=== PATIENT | female | born 1980 | race African-American/Black ===

== ENCOUNTER 2017-02-19 13:29 | Emergency (ER) | payer MEDICAID | END 2017-02-19 14:14 | disposition left against medical advice (07) | LOC: D.ER 13:29 | DX: H92.02 Otalgia, left ear (principal) ==

== ENCOUNTER 2017-09-20 10:20 | Observation (INO) | payer MEDICAID ==
[~2017-09-20] VITALS: Ht 165.1 cm; Wt 75.6 kg
[2017-09-20 11:28] LABS: BASOPHILS 0.2 % (0-2); EOSINOPHILS 2.5 % (0-7); HEMATOCRIT 42.5 % (36.0-48.0); HEMOGLOBIN 13.9 g/dL (12-16); IMMATURE GRANULOCYTES 0.2 % (0-5); LYMPHOCYTES 35.1 % (15-50); MCH 28.5 pg (26.0-34.0); MCHC 32.7 g/dL (31.0-37.0); MCV 87.3 fL (80.0-100.0); MEAN PLATELET VOLUME 10.5 fL (7.4-10.4); MONOCYTES 8.3 % (2-11); NEUTROPHILS 53.7 % (40-80); PLATELET COUNT 248 10x3/uL (130-400); RBC 4.87 10x6/uL (4.00-5.40); RDW 15.9 % (11.5-14.5); WBC 5.6 10x3/uL (4.8-10.8)
[2017-09-20 11:34] LABS: APTT 22.6 SECONDS (22.8-39.4); INR 0.95 (0.85-1.17); PROTIME 12.3 SECONDS (11.6-15.0)
[2017-09-20 11:39] LABS: ALBUMIN 3.8 g/dL (3.4-5.0); ALKALINE PHOSPHATASE 78 U/L (46-116); ALT (SGPT) 13 U/L (10-68); BILIRUBIN - TOTAL 0.67 mg/dL (0.2-1.3); CALC OSMOLALITY 279 mosm/kg (275-300); CARBON DIOXIDE 27.4 mmol/L (21.0-32.0); CHLORIDE - SERUM 106 mmol/L (98-107); GLUCOSE 97 mg/dL (74-106); POTASSIUM - SERUM 4.1 mmol/L (3.5-5.1); PROTEIN - SERUM 7.4 g/dL (6.4-8.2); SODIUM 141 mmol/L (136-145); UREA NITROGEN 11 mg/dL (7-18); eGFR NON AFRICAN AMERICAN 65 mL/min (90-120)
[2017-09-20 11:50] LABS: CKMB 0.6 U/L (0.0-3.6); CREATINE KINASE 101 UL (21-215)
[2017-09-20 11:57] LABS: TROPONIN-I < 0.017 ng/mL (0.000-0.060)
[2017-09-20 12:23] LABS: UDS - AMPHET NEGATIVE QUAL (NEGATIVE); UDS - BARB NEGATIVE QUAL (NEGATIVE); UDS - BENZO NEGATIVE QUAL (NEGATIVE); UDS - COCAINE NEGATIVE QUAL (NEGATIVE); UDS - OPIATE POSITIVE QUAL (NEGATIVE); UDS - PCP NEGATIVE QUAL (NEGATIVE); UDS - THC POSITIVE QUAL (NEGATIVE)
[2017-09-20 12:56] LABS: APPEARANCE HAZY (CLEAR); COLOR DK YELLOW (YELLOW); GLUCOSE NEGATIVE (NEGATIVE); NITRITE NEGATIVE (NEGATIVE)
[2017-09-20 12:57] LABS: BILIRUBIN NEGATIVE (NEGATIVE); KETONE NEGATIVE (NEGATIVE); PROTEIN NEGATIVE (NEGATIVE); UROBILINOGEN NORMAL (NORMAL)
[2017-09-20 13:11] LABS: BACTERIA MODERATE /hpf (NONE SEEN); RED CELLS - URINE >50 /hpf (0-5); WHITE CELLS - URINE 0-5 /hpf (0-5)
--- NOTE | 2017-09-20 18:14 | NUR ---
PT ARRIVED TO FLOOR VIA WHEELCHAIR WITH BLANCA WILCOX. WILL ADMIT
[2017-09-20 18:18] LABS: CKMB 0.5 U/L (0.0-3.6); CREATINE KINASE 97 UL (21-215)
[2017-09-20 18:24] LABS: TROPONIN-I < 0.017 ng/mL (0.000-0.060)
[2017-09-20 20:23] VITALS: BP 131/78
--- NOTE | 2017-09-20 21:28 | NUR ---
RELIABILITY ENGINEER STATES PT SAYING SHE IS IN PAIN AND NEEDS MEDICINE. MIRIAN UP MORPHINE TO ADMINISTER AND WENT TO ROOM. PT NO WHERE TO BE FOUND AND GEAR ROOM KEEPER SHOWS SHE HAS GONE OUT OF THE BUILDING. WILL DISCUSS TELEMETRY LIMITATIONS AND THAT IF SHE REQUESTS PAIN MEDS, SHE MUST STAY ON THE FLOOR TO RECIEVE THEM AND NOT LEAVE THE FLOOR AFTERWARD. WILL MONITOR FOR HER RETURN.
--- NOTE | 2017-09-20 22:08 | NUR ---
PT RETURNED TO ROOM. SAID SHE HAD BEEN TO THE VENDING MACHINE. IV MORPHINE GIVEN FOR CHEST/BREAST PAIN 05/21. PT IS ALERT/ORIENTED AND INDEPENDENT WITH ADLS. CALL LIGHT IN REACH. CPOC.
[2017-09-21 01:19] LABS: CKMB 0.8 U/L (0.0-3.6); CREATINE KINASE 84 UL (21-215); TROPONIN-I < 0.017 ng/mL (0.000-0.060)
[2017-09-21 01:21] VITALS: BP 117/67
[2017-09-21 04:35] VITALS: BP 131/78; Ht 165.1 cm; Wt 75.6 kg
[2017-09-21 04:48] VITALS: BP 137/96
[2017-09-21 06:40] LABS: CKMB 0.7 U/L (0.0-3.6); CREATINE KINASE 79 UL (21-215)
[2017-09-21 06:44] LABS: TROPONIN-I < 0.017 ng/mL (0.000-0.060)
--- NOTE | 2017-09-21 07:01 | NUR ---
C/O CHEST PRESSURE/PAIN X 1 HOUR. ADMINISTERED NITRO TAB 0.4MG X 1 SUBLINGUALLY AND ALSO STARTED O2 @ 2L/NC. WILL MONITOR RESPONSE. REPORT TO ONCOMING NURSE.
--- NOTE | 2017-09-21 07:15 | NUR ---
RESTING QUIETLY EYES CLOSED NAD NOTED
--- NOTE | 2017-09-21 07:40 | NUR ---
ASSESSMENT DONE. DENIES NEEDS.
[2017-09-21 08:00] VITALS: BP 132/95
[2017-09-21 11:25] VITALS: BP 146/97
[2017-09-21] MEDS ORDERED: NORVASC5 MG PO (14:52)
[2017-09-21] MEDS ORDERED: NICODERM C1 PATCH .1 TRANSDERM (14:52)
[2017-09-21] MEDS ORDERED: ASPIRIN325 MG PO (14:52)
[2017-09-21 15:39] VITALS: BP 128/90
--- NOTE | 2017-09-21 16:06 | NUR ---
DC GIVEN TO PT
--- NOTE | 2017-09-21 16:41 | NUR ---
DC HOME PER TAXI
== END 2017-09-21 16:42 | disposition home or self-care (01) ==
LOC: D.ER 10:20 → D.M2 16:48 → OBSVTIME 16:48 → D.M2 09-21 16:42
PROVIDERS: Family Medicine; ADMIT Family Medicine
DX: I16.0 Hypertensive urgency (principal); R07.9 Chest pain, unspecified; F17.203 Nicotine dependence unspecified, with withdrawal; F12.90 Cannabis use, unspecified, uncomplicated

== ENCOUNTER 2019-01-19 10:48 | Emergency (ER) | payer MEDICAID ==
[~2019-01-19] VITALS: Ht 160 cm; Wt 76.4 kg
[~2019-01-19 10:48] MED LIST: ASPIRIN325 MG PO; NICODERM C1 PATCH .1 TRANSDERM; NORVASC5 MG PO
[2019-01-19 10:50] VITALS: Ht 160 cm; Wt 76.4 kg
[2019-01-19 11:25] LABS: BASOPHILS 0.1 % (0-2); EOSINOPHILS 0.4 % (0-7); HEMATOCRIT 39.4 % (36.0-48.0); HEMOGLOBIN 13.2 g/dL (12-16); IMMATURE GRANULOCYTES 0.2 % (0-5); LYMPHOCYTES 14.3 % (15-50); MCH 29.3 pg (26.0-34.0); MCHC 33.5 g/dL (31.0-37.0); MCV 87.4 fL (80.0-100.0); MEAN PLATELET VOLUME 10.3 fL (7.4-10.4); PLATELET COUNT 269 10x3/uL (130-400); RBC 4.51 10x6/uL (4.00-5.40); RDW 15.9 % (11.5-14.5)
[2019-01-19 11:32] LABS: HCG SERUM NEGATIVE (NEGATIVE)
[2019-01-19 11:36] LABS: ALBUMIN 3.8 g/dL (3.4-5.0); ANION GAP 13.6 mmol/L (8-16); BILIRUBIN - TOTAL 0.56 mg/dL (0.2-1.3); CARBON DIOXIDE 24.8 mmol/L (21.0-32.0); CREATININE - SERUM 1.2 mg/dL (0.6-1.3); POTASSIUM - SERUM 3.4 mmol/L (3.5-5.1)
[2019-01-19 12:45] LABS: APPEARANCE CLEAR (CLEAR); COLOR YELLOW (YELLOW); NITRITE NEGATIVE (NEGATIVE); PROTEIN TRACE mg/dL (NEGATIVE); SPECIFIC GRAVITY 1.015 (1.005-1.020)
[2019-01-19 12:46] LABS: BILIRUBIN NEGATIVE (NEGATIVE); GLUCOSE NEGATIVE (NEGATIVE); KETONE NEGATIVE (NEGATIVE); UROBILINOGEN NORMAL (NORMAL)
[2019-01-19 12:47] LABS: BACTERIA MODERATE /hpf (NONE SEEN); EPITHELIAL CELLS 0-5 /hpf (0-5); MUCUS >1+ /lpf (NONE SEEN); WHITE CELLS - URINE 0-5 /hpf (0-5)
[2019-01-19] MEDS ORDERED: ZOFRAN ODT4 MG/UDTAB PO (14:49)
[2019-01-19] MEDS ORDERED: FLAGYL500 MG PO (14:49)
[2019-01-19] MEDS ORDERED: BENTYL 20 MG TA20 MG PO (14:49)
[2019-01-19 15:02] VITALS: BP 159/111
[2019-01-19] MEDS ORDERED: LISINOPRIL20 MG PO (15:07)
== END 2019-01-19 15:02 | disposition home or self-care (01) ==
LOC: D.ER 10:48
PROVIDERS: Family Medicine
DX: A59.9 Trichomoniasis, unspecified (principal); N39.0 Urinary tract infection, site not specified; I10 Essential (primary) hypertension; F17.200 Nicotine dependence, unspecified, uncomplicated

== ENCOUNTER 2019-04-30 00:05 | Emergency (ER) | payer MEDICAID ==
[~2019-04-30] VITALS: Ht 160 cm; Wt 80.9 kg
[~2019-04-30 00:05] MED LIST changes: +BENTYL 20 MG TA20 MG PO; +FLAGYL500 MG PO; +LISINOPRIL20 MG PO; +ZOFRAN ODT4 MG/UDTAB PO
[2019-04-30 00:08] VITALS: Ht 160 cm; Wt 80.9 kg
[2019-04-30 00:28] LABS: HEMATOCRIT 40.6 % (36.0-48.0); HEMOGLOBIN 13.4 g/dL (12-16); LYMPHOCYTES 19.2 % (15-50); MCH 28.7 pg (26.0-34.0); MCV 86.9 fL (80.0-100.0); MEAN PLATELET VOLUME 10.2 fL (7.4-10.4); NEUTROPHILS 77.3 % (40-80); PLATELET COUNT 251 10x3/uL (130-400); RBC 4.67 10x6/uL (4.00-5.40); RDW 16.3 % (11.5-14.5); WBC 8.2 10x3/uL (4.8-10.8)
[2019-04-30 00:44] LABS: ALBUMIN 3.7 g/dL (3.4-5.0); ALKALINE PHOSPHATASE 88 U/L (46-116); ALT (SGPT) 10 U/L (10-68); AMYLASE - SERUM 51 U/L (25-115); BILIRUBIN - TOTAL 0.56 mg/dL (0.2-1.3); CARBON DIOXIDE 23.2 mmol/L (21.0-32.0); CHLORIDE - SERUM 102 mmol/L (98-107); LIPASE 87 U/L (73-393); PROTEIN - SERUM 7.5 g/dL (6.4-8.2); SODIUM 138 mmol/L (136-145); UREA NITROGEN 10 mg/dL (7-18); eGFR NON AFRICAN AMERICAN 65 mL/min (90-120)
[2019-04-30 00:45] LABS: CALC OSMOLALITY 277 mosm/kg (275-300); GLUCOSE 146 mg/dL (74-106)
[2019-04-30 00:46] LABS: POTASSIUM - SERUM 2.8 mmol/L (3.5-5.1); TROPONIN-I < 0.017 ng/mL (0.000-0.060)
[2019-04-30 01:01] LABS: APPEARANCE CLEAR (CLEAR); BILIRUBIN NEGATIVE (NEGATIVE); COLOR YELLOW (YELLOW); GLUCOSE NEGATIVE (NEGATIVE); KETONE MODERATE mg/dL (NEGATIVE); NITRITE NEGATIVE (NEGATIVE); PROTEIN NEGATIVE (NEGATIVE); UROBILINOGEN NORMAL (NORMAL)
[2019-04-30 01:56] LABS: HCG URINE NEGATIVE (NEGATIVE)
[2019-04-30] MEDS ORDERED: FLAGYL500 MG PO (04:09)
[2019-04-30] MEDS ORDERED: LEVAQUIN750 MG PO (04:09)
[2019-04-30] MEDS ORDERED: FLORASTOR250 MG PO (04:09)
[2019-04-30 07:19] VITALS: BP 134/82
== END 2019-04-30 04:30 | disposition home or self-care (01) ==
LOC: D.ER 00:05
PROVIDERS: Family Medicine
DX: K52.9 Noninfective gastroenteritis and colitis, unspecified (principal)

== ENCOUNTER 2019-05-26 12:04 | Emergency (ER) | payer MEDICAID ==
[~2019-05-26] VITALS: Ht 160 cm; Wt 68.2 kg
[~2019-05-26 12:04] MED LIST changes: +FLORASTOR250 MG PO; +LEVAQUIN750 MG PO
[2019-05-26 12:22] VITALS: Ht 160 cm; Wt 68.2 kg
[2019-05-26 12:44] LABS: BASOPHILS 0 % (0-2); EOSINOPHILS 0 % (0-7); HEMATOCRIT 42.7 % (36.0-48.0); HEMOGLOBIN 14.6 g/dL (12-16); IMMATURE GRANULOCYTES 0.4 % (0-5); LYMPHOCYTES 3.7 % (15-50); MCH 28.9 pg (26.0-34.0); MCHC 34.2 g/dL (31.0-37.0); MCV 84.6 fL (80.0-100.0); MEAN PLATELET VOLUME 10.1 fL (7.4-10.4); MONOCYTES 4.6 % (2-11); NEUTROPHILS 91.3 % (40-80); PLATELET COUNT 247 10x3/uL (130-400); RBC 5.05 10x6/uL (4.00-5.40); RDW 16.2 % (11.5-14.5); WBC 16.9 10x3/uL (4.8-10.8)
[2019-05-26 13:07] LABS: ALKALINE PHOSPHATASE 90 U/L (46-116); ALT (SGPT) 14 U/L (10-68); BILIRUBIN - TOTAL 0.76 mg/dL (0.2-1.3); CALC OSMOLALITY 280 mosm/kg (275-300); CARBON DIOXIDE 26.2 mmol/L (21.0-32.0); CHLORIDE - SERUM 101 mmol/L (98-107); GLUCOSE 146 mg/dL (74-106); POTASSIUM - SERUM 3.7 mmol/L (3.5-5.1); PROTEIN - SERUM 8.2 g/dL (6.4-8.2); SODIUM 140 mmol/L (136-145); UREA NITROGEN 9 mg/dL (7-18); eGFR NON AFRICAN AMERICAN 65 mL/min (90-120)
[2019-05-26 13:11] LABS: AMYLASE - SERUM 50 U/L (25-115); LIPASE 66 U/L (73-393); TROPONIN-I < 0.017 ng/mL (0.000-0.060)
[2019-05-26] MEDS ORDERED: PHENERGAN25 MG RC (14:18)
[2019-05-26] MEDS ORDERED: LOMOTIL 2.5-0.1 EAC1 PO (14:18)
[2019-05-26 14:29] LABS: APPEARANCE CLEAR (CLEAR); BILIRUBIN NEGATIVE (NEGATIVE); COLOR YELLOW (YELLOW); GLUCOSE NEGATIVE (NEGATIVE); KETONE NEGATIVE (NEGATIVE); NITRITE NEGATIVE (NEGATIVE); PROTEIN 1+ mg/dL (NEGATIVE); UROBILINOGEN NORMAL (NORMAL)
[2019-05-26 14:30] LABS: WHITE CELLS - URINE 0-5 /hpf (0-5)
[2019-05-26 14:31] LABS: BACTERIA FEW /hpf (NONE SEEN); MUCUS >1+ /lpf (NONE SEEN)
[2019-05-26 15:23] VITALS: BP 131/77
== END 2019-05-26 15:27 | disposition home or self-care (01) ==
LOC: D.ER 12:04
PROVIDERS: Emergency Medicine
DX: R11.10 Vomiting, unspecified (principal); R19.7 Diarrhea, unspecified; R10.9 Unspecified abdominal pain; F17.210 Nicotine dependence, cigarettes, uncomplicated

== ENCOUNTER 2020-03-14 00:17 | Emergency (ER) | payer SELFPAY ==
[~2020-03-14] VITALS: Ht 160 cm; Wt 65.9 kg
[~2020-03-14 00:17] MED LIST changes: +LOMOTIL 2.5-0.1 EAC1 PO; +PHENERGAN25 MG RC
[2020-03-14 00:33] VITALS: Ht 160 cm; Wt 65.9 kg
[2020-03-14 01:03] LABS: BASOPHILS 0.4 % (0-2); EOSINOPHILS 2.6 % (0-7); HEMATOCRIT 40.5 % (36.0-48.0); HEMOGLOBIN 12.9 g/dL (12-16); IMMATURE GRANULOCYTES 0.2 % (0-5); LYMPHOCYTES 38.8 % (15-50); MCH 29.5 pg (26.0-34.0); MCHC 31.9 g/dL (31.0-37.0); MCV 92.5 fL (80.0-100.0); MEAN PLATELET VOLUME 10.2 fL (7.4-10.4); MONOCYTES 10.4 % (2-11); NEUTROPHILS 47.6 % (40-80); PLATELET COUNT 287 10x3/uL (130-400); RBC 4.38 10x6/uL (4.00-5.40); RDW 14.6 % (11.5-14.5); WBC 5.5 10x3/uL (4.8-10.8)
[2020-03-14 01:14] LABS: CALC OSMOLALITY 278 mosm/kg (275-300); CALCIUM 8.6 mg/dL (8.5-10.1); CARBON DIOXIDE 26.6 mmol/L (21.0-32.0); CHLORIDE - SERUM 104 mmol/L (98-107); CREATININE - SERUM 1.1 mg/dL (0.6-1.3); GLUCOSE 101 mg/dL (74-106); POTASSIUM - SERUM 3.2 mmol/L (3.5-5.1); SODIUM 139 mmol/L (136-145); UREA NITROGEN 14 mg/dL (7-18); eGFR NON AFRICAN AMERICAN 58 mL/min (90-120)
[2020-03-14 01:19] LABS: APTT 28.4 SECONDS (22.8-39.4); INR 0.99 (0.85-1.17); PROTIME 13.1 SECONDS (11.6-15.0)
[2020-03-14 01:20] LABS: D-DIMER-QUANTITATIVE 0.34 ug/mLFEU (0.20-0.54)
[2020-03-14 01:31] LABS: ALBUMIN 3.2 g/dL (3.4-5.0); ALKALINE PHOSPHATASE 101 U/L (30-120); ALT (SGPT) 14 U/L (10-68); BILIRUBIN - TOTAL 0.25 mg/dL (0.2-1.3); CKMB 1.1 U/L (0.0-3.6); CREATINE KINASE 69 UL (21-215); MAGNESIUM - SERUM 2.1 mg/dL (1.8-2.4); PROTEIN - SERUM 6.6 g/dL (6.4-8.2); TROPONIN-I < 0.017 ng/mL (0.000-0.060)
[2020-03-14] MEDS ORDERED: LISINOPRIL40 MG PO ×2 (01:38→04:28)
[2020-03-14 04:02] LABS: CKMB 0.8 U/L (0.0-3.6); CREATINE KINASE 68 UL (21-215)
[2020-03-14 04:04] LABS: TROPONIN-I < 0.017 ng/mL (0.000-0.060)
[2020-03-14 04:37] VITALS: BP 150/95
== END 2020-03-14 04:35 | disposition home or self-care (01) ==
LOC: D.ER 00:17
PROVIDERS: Family Medicine
DX: R07.9 Chest pain, unspecified (principal); Z91.14 Patient's other noncompliance with medication regimen; I10 Essential (primary) hypertension; Z72.0 Tobacco use; R06.02 Shortness of breath

== ENCOUNTER 2020-04-20 05:51 | Emergency (ER) | payer MEDICAID ==
[~2020-04-20] VITALS: Ht 160 cm; Wt 72.6 kg
[~2020-04-20 05:51] MED LIST changes: +LISINOPRIL40 MG PO
[2020-04-20 05:57] VITALS: Ht 160 cm; Wt 72.6 kg
[2020-04-20 06:10] LABS: BASOPHILS 0.2 % (0-2); EOSINOPHILS 3.1 % (0-7); HEMATOCRIT 42.6 % (36.0-48.0); HEMOGLOBIN 14.1 g/dL (12-16); IMMATURE GRANULOCYTES 0.2 % (0-5); LYMPHOCYTES 31.9 % (15-50); MCH 29.7 pg (26.0-34.0); MCHC 33.1 g/dL (31.0-37.0); MCV 89.9 fL (80.0-100.0); MEAN PLATELET VOLUME 9.8 fL (7.4-10.4); MONOCYTES 11.6 % (2-11); PLATELET COUNT 256 10x3/uL (130-400); RBC 4.74 10x6/uL (4.00-5.40); WBC 5.2 10x3/uL (4.8-10.8)
[2020-04-20 06:20] LABS: CALC OSMOLALITY 275 mosm/kg (275-300); CALCIUM 8.9 mg/dL (8.5-10.1); CARBON DIOXIDE 26.1 mmol/L (21.0-32.0); CHLORIDE - SERUM 103 mmol/L (98-107); CREATININE - SERUM 1.1 mg/dL (0.6-1.3); GLUCOSE 97 mg/dL (74-106); SODIUM 138 mmol/L (136-145); UREA NITROGEN 12 mg/dL (7-18); eGFR NON AFRICAN AMERICAN 58 mL/min (90-120)
[2020-04-20 06:32] LABS: ALBUMIN 3.3 g/dL (3.4-5.0); ALKALINE PHOSPHATASE 129 U/L (30-120); ALT (SGPT) 21 U/L (10-68); BILIRUBIN - TOTAL 0.42 mg/dL (0.2-1.3); C-REACTIVE PROTEIN 0.8 mg/dL (0.0-0.9); PRO BNP 102 pg/mL (0-125); PROTEIN - SERUM 6.9 g/dL (6.4-8.2); TROPONIN-I < 0.017 ng/mL (0.000-0.060)
[2020-04-20] MEDS ORDERED: AZITHROMYCIN500 MG PO (06:40)
[2020-04-20] MEDS ORDERED: AMOXICILLIN500 M1 PO (06:40)
[2020-04-20 07:23] VITALS: BP 154/86
== END 2020-04-20 07:23 | disposition home or self-care (01) ==
LOC: D.ER 05:51
PROVIDERS: Family Medicine
DX: I10 Essential (primary) hypertension (principal); R05 Cough; J18.9 Pneumonia, unspecified organism; Z72.0 Tobacco use

== ENCOUNTER 2020-06-15 08:58 | Emergency (ER) | payer MEDICAID ==
[~2020-06-15] VITALS: Ht 160 cm; Wt 72.7 kg
[~2020-06-15 08:58] MED LIST changes: +AMOXICILLIN500 M1 PO; +AZITHROMYCIN500 MG PO
[2020-06-15 09:03] VITALS: Ht 160 cm; Wt 72.7 kg
[2020-06-15] MEDS ORDERED: NORVASC5 MG PO (09:20)
[2020-06-15] MEDS ORDERED: MEDROL DOSE PACK4 MG PO (09:20)
[2020-06-15 13:06] VITALS: BP 137/83
== END 2020-06-15 13:07 | disposition home or self-care (01) ==
LOC: D.ER 08:58
DX: L50.9 Urticaria, unspecified (principal); I10 Essential (primary) hypertension

== ENCOUNTER 2020-06-16 16:27 | Inpatient (IN) | payer MEDICAID ==
[~2020-06-16] VITALS: Ht 160 cm; Wt 72.7 kg
[~2020-06-16 16:27] MED LIST changes: +MEDROL DOSE PACK4 MG PO
[2020-06-16 16:54] LABS: BASOPHILS 0.1 % (0-2); EOSINOPHILS 0.1 % (0-7); HEMATOCRIT 46.1 % (36.0-48.0); IMMATURE GRANULOCYTES 0.2 % (0-5); MCH 27.7 pg (26.0-34.0); MCHC 32.5 g/dL (31.0-37.0); MCV 85.1 fL (80.0-100.0); MEAN PLATELET VOLUME 10.3 fL (7.4-10.4); MONOCYTES 3.5 % (2-11); NEUTROPHILS 90.1 % (40-80); RBC 5.42 10x6/uL (4.00-5.40); WBC 12.6 10x3/uL (4.8-10.8)
[2020-06-16 16:56] LABS: PLATELET COUNT 340 10x3/uL (130-400)
[2020-06-16 17:06] LABS: ANION GAP 15.7 mmol/L (8-16); CALCIUM 9.8 mg/dL (8.5-10.1); CREATININE - SERUM 1.2 mg/dL (0.6-1.3)
[2020-06-16 17:12] LABS: ALBUMIN 3.8 g/dL (3.4-5.0); BILIRUBIN - TOTAL 0.54 mg/dL (0.2-1.3); PROTEIN - SERUM 7.9 g/dL (6.4-8.2)
[2020-06-16 17:18] LABS: POTASSIUM - SERUM 4.7 mmol/L (3.5-5.1)
--- NOTE | 2020-06-16 18:22 | NUR ---
PT ARIVED VIA WHEELCHAIR TO ROOM. ALERT AND ORIENTED X4, UP WITHOUT ASSISTANCE. CUTTER GRIND TOOL TECHNICIAN ORDERED SUPPER TRAY. PROVIDED XTRA PILLOW. NO COMPLAINTS OR CONCERNS AT THIS TIME. CL INR EACH, SRX2.
[2020-06-16 20:44] VITALS: BP 152/93
--- NOTE | 2020-06-16 23:10 | NUR ---
PIV TO LEFT HAND D/C CATHETER TIP INTACT. NEW PIV RESITED TO RIGHT FA X2 ATTEMPTS. PT TOLERATED WELL. COMPLAINED OF GENERALIZED ITCHING, AND THAT HER THROAT HURTS. DENIES DIFFICULTY BREATHING. CALL LIGHT IN REACH. WILL CPOC.
[2020-06-17 00:24] VITALS: BP 173/87
[2020-06-17 02:52] VITALS: Ht 160 cm; Wt 72.7 kg
[2020-06-17 04:45] VITALS: BP 155/99
[2020-06-17 06:10] LABS: BASOPHILS 0 % (0-2); EOSINOPHILS 0 % (0-7); HEMATOCRIT 38.5 % (36.0-48.0); IMMATURE GRANULOCYTES 0.2 % (0-5); LYMPHOCYTES 6.8 % (15-50); MCH 27.2 pg (26.0-34.0); MCHC 31.2 g/dL (31.0-37.0); MEAN PLATELET VOLUME 10.6 fL (7.4-10.4); MONOCYTES 0.7 % (2-11); NEUTROPHILS 92.3 % (40-80); PLATELET COUNT 319 10x3/uL (130-400); RBC 4.41 10x6/uL (4.00-5.40); RDW 14.1 % (11.5-14.5); WBC 10.8 10x3/uL (4.8-10.8)
[2020-06-17 06:20] LABS: MCV 87.3 fL (80.0-100.0)
[2020-06-17 06:33] LABS: ALBUMIN 3.1 g/dL (3.4-5.0); ANION GAP 15.4 mmol/L (8-16); BILIRUBIN - TOTAL 0.26 mg/dL (0.2-1.3); CALCIUM 9.1 mg/dL (8.5-10.1); POTASSIUM - SERUM 4.4 mmol/L (3.5-5.1); PROTEIN - SERUM 6.4 g/dL (6.4-8.2)
[2020-06-17 07:00] VITALS: BP 154/80
--- NOTE | 2020-06-17 07:20 | NUR ---
RECIEVE REPORT. RESTING IN BED. DENIES ANY NEEDS. NO SIGNS OF DISTRESS. CONTINUE PLAN OF CARE AND SAFETY PRECAUTIONS.
[2020-06-17 15:00] VITALS: BP 158/97
--- NOTE | 2020-06-17 19:57 | NUR ---
C/O ITCHING AND HIVES. ASSSED AND UNABLE TO CLEARLY SEE HIVES. BENADRYL GIVEN PER REQUEST. SCRATCHING AREAS WITH LONG FINGER NAILS. GAVE HER A WASH CLOSTH AND ASKED HER TO USE THAT OVER HER NAILS TO PREVENT OPEN AREAS WHERE SHE WAD SCRATCING. VOICED UNDERSTANDING.
[2020-06-18 00:53] VITALS: BP 165/102
--- NOTE | 2020-06-18 03:04 | NUR ---
B/P ELEVATED TO 177/118. NOTIFIED APN. ARGUELLES WITH N.O. FOR APRESOLINE 10MG IV FOR SBP FGREATER THAN 170. GIVEN ORDERED. AUTO B/P ON TO RECHECK IN 30MIN.
[2020-06-18 04:30] VITALS: BP 168/101
[2020-06-18 06:02] LABS: BASOPHILS 0 % (0-2); EOSINOPHILS 0 % (0-7); HEMATOCRIT 39.6 % (36.0-48.0); HEMOGLOBIN 12.7 g/dL (12-16); IMMATURE GRANULOCYTES 0.6 % (0-5); LYMPHOCYTES 7.1 % (15-50); MCH 27.3 pg (26.0-34.0); MCHC 32.1 g/dL (31.0-37.0); MEAN PLATELET VOLUME 10.3 fL (7.4-10.4); MONOCYTES 4.9 % (2-11); NEUTROPHILS 87.4 % (40-80); PLATELET COUNT 351 10x3/uL (130-400); RBC 4.66 10x6/uL (4.00-5.40)
[2020-06-18 06:18] LABS: ALBUMIN 3.2 g/dL (3.4-5.0); BILIRUBIN - TOTAL 0.2 mg/dL (0.2-1.3); CALCIUM 9.1 mg/dL (8.5-10.1); CARBON DIOXIDE 26.1 mmol/L (21.0-32.0); CREATININE - SERUM 1.2 mg/dL (0.6-1.3); PROTEIN - SERUM 6.5 g/dL (6.4-8.2)
[2020-06-18 06:19] LABS: ANION GAP 11.6 mmol/L (8-16); POTASSIUM - SERUM 3.7 mmol/L (3.5-5.1)
[2020-06-18 06:31] LABS: WBC 18.9 10x3/uL (4.8-10.8)
--- NOTE | 2020-06-18 07:55 | NUR ---
PT RESTING, RR EVEN AND UNLABORED ON RA. NO DISTRESS NOTED. CALL LIGHT WITHIN REACH. BED IN LOWEST POSITION. WILL CONTINUE TO MONITOR.
[2020-06-18 09:46] VITALS: BP 154/100
--- NOTE | 2020-06-18 11:14 | NUR ---
D/C INSTRUCTIONS REVIEWED WITH PT AND FAMILY MEMBER. IV D/C WITH CATHETER TIP INTACT. PT LEFT VIA WHEELCHAIR WITH ALL BELONGINGS TO PERSONAL VEHICLE.
== END 2020-06-18 11:15 | disposition home or self-care (01) | DRG 916 ==
LOC: D.ER 16:27 → D.M2 17:10 → OBSVTIME 17:10 → D.M2 06-17 21:50
PROVIDERS: Family Medicine; ADMIT Emergency Medicine; ATTEND Emergency Medicine
DX: T78.3XXA Angioneurotic edema, initial encounter (principal); F31.30 Bipolar disorder, current episode depressed, mild or moderate severity, unspecified; I10 Essential (primary) hypertension; F12.90 Cannabis use, unspecified, uncomplicated; K21.9 Gastro-esophageal reflux disease without esophagitis; Z87.891 Personal history of nicotine dependence

== ENCOUNTER 2021-02-02 05:13 | Emergency (ER) | payer OTHER ==
[~2021-02-02] VITALS: Ht 160 cm; Wt 61.4 kg
[~2021-02-02 05:13] MED LIST changes: +ALBUTEROL SULF8.5 GM INH; +LEVSIN/ANASP0.125 MG PO; +OMNICEF300 MG PO; +ZPAK PO
[2021-02-02 05:16] VITALS: Ht 160 cm; Wt 61.4 kg
[2021-02-02 05:41] LABS: BASOPHILS 0.5 % (0-2); EOSINOPHILS 4.5 % (0-7); HEMATOCRIT 43.5 % (36.0-48.0); HEMOGLOBIN 13.5 g/dL (12-16); IMMATURE GRANULOCYTES 0.2 % (0-5); LYMPHOCYTE ABS# 0.85 10x3/uL (1.18-3.74); LYMPHOCYTES 20.3 % (15-50); MCH 22.8 pg (26.0-34.0); MCV 73.5 fL (80.0-100.0); MEAN PLATELET VOLUME 9.8 fL (7.4-10.4); MONOCYTES 16.9 % (2-11); NEUTROPHIL ABS# 2.41 10x3/uL (1.56-6.13); NEUTROPHILS 57.6 % (40-80); PLATELET COUNT 299 10x3/uL (130-400); RBC 5.92 10x6/uL (4.00-5.40); RDW 17.3 % (11.5-14.5); WBC 4.2 10x3/uL (4.8-10.8)
[2021-02-02 05:52] LABS: CALC OSMOLALITY 277 mosm/kg (275-300); CALCIUM 9.3 mg/dL (8.5-10.1); CARBON DIOXIDE 28.2 mmol/L (21.0-32.0); CHLORIDE - SERUM 103 mmol/L (98-107); GLUCOSE 93 mg/dL (74-106); POTASSIUM - SERUM 4.2 mmol/L (3.5-5.1); SODIUM 140 mmol/L (136-145); UREA NITROGEN 11 mg/dL (7-18); eGFR NON AFRICAN AMERICAN 64 mL/min (90-120)
[2021-02-02 05:54] LABS: APTT 26.6 SECONDS (22.8-39.4); INR 1.1 (0.85-1.17); PROTIME 13.2 SECONDS (11.6-15.0)
[2021-02-02 06:07] LABS: ALBUMIN 3.7 g/dL (3.4-5.0); ALKALINE PHOSPHATASE 98 U/L (30-120); ALT (SGPT) 18 U/L (10-68); BILIRUBIN - TOTAL 0.58 mg/dL (0.2-1.3); CKMB 1.5 U/L (0.0-3.6); CREATINE KINASE 79 UL (21-215); MAGNESIUM - SERUM 2.1 mg/dL (1.8-2.4); PROTEIN - SERUM 7.7 g/dL (6.4-8.2)
[2021-02-02 06:08] LABS: TROPONIN-I < 0.017 ng/mL (0.000-0.060)
[2021-02-02] MEDS ORDERED: LEVAQUIN750 MG PO (06:23)
[2021-02-02] MEDS ORDERED: HYDROCODON-ACE1 EAC7 PO (06:25)
[2021-02-02 07:17] VITALS: BP 134/88
== END 2021-02-02 08:06 | disposition home or self-care (01) ==
LOC: D.ER 05:13
PROVIDERS: Emergency Medicine
DX: J18.9 Pneumonia, unspecified organism (principal); R07.9 Chest pain, unspecified; I10 Essential (primary) hypertension; Z72.0 Tobacco use

== ENCOUNTER 2021-03-10 09:03 | Inpatient (IN) | payer OTHER ==
[~2021-03-10] VITALS: Ht 160 cm; Wt 68.6 kg
[~2021-03-10 09:03] MED LIST changes: +HYDROCODON-ACE1 EAC7 PO
[2021-03-10 09:53] LABS: BASOPHILS 0.4 % (0-2); EOSINOPHILS 1.4 % (0-7); HEMATOCRIT 44.8 % (36.0-48.0); LYMPHOCYTES 12.8 % (15-50); MCH 22.9 pg (26.0-34.0); MCHC 31.2 g/dL (31.0-37.0); MCV 73.4 fL (80.0-100.0); MEAN PLATELET VOLUME 8.4 fL (7.4-10.4); MONOCYTES 10.5 % (2-11); NEUTROPHILS 74.9 % (40-80); PLATELET COUNT 284 10x3/uL (130-400); RDW 21.5 % (11.5-14.5); WBC 5.4 10x3/uL (4.8-10.8)
[2021-03-10 09:57] LABS: CALC OSMOLALITY 277 mosm/kg (275-300); CALCIUM 9.2 mg/dL (8.5-10.1); CARBON DIOXIDE 30.2 mmol/L (21.0-32.0); CHLORIDE - SERUM 100 mmol/L (98-107); GLUCOSE 134 mg/dL (74-106); POTASSIUM - SERUM 4.4 mmol/L (3.5-5.1); SODIUM 138 mmol/L (136-145); UREA NITROGEN 13 mg/dL (7-18); eGFR NON AFRICAN AMERICAN 64 mL/min (90-120)
[2021-03-10 09:58] LABS: APTT 27.9 SECONDS (22.8-39.4); INR 1.08 (0.85-1.17)
[2021-03-10 10:14] LABS: ALBUMIN 3.8 g/dL (3.4-5.0); ALKALINE PHOSPHATASE 99 U/L (30-120); ALT (SGPT) 18 U/L (10-68); BILIRUBIN - TOTAL 0.74 mg/dL (0.2-1.3); CKMB 1.6 U/L (0.0-3.6); CREATINE KINASE 91 UL (21-215); PROTEIN - SERUM 8.2 g/dL (6.4-8.2)
[2021-03-10 10:15] LABS: TROPONIN-I < 0.017 ng/mL (0.000-0.060)
[2021-03-10 11:56] LABS: FERRITIN 32 ng/mL (3-244); LDH 190 U/L (81-234)
[2021-03-10 12:36] LABS: ERYTHROCYTE SEDIMENTATION RATE 4 mm/hr (0-20)
[2021-03-10 13:33] VITALS: BP 157/111
[2021-03-10 16:20] VITALS: BP 136/97
--- NOTE | 2021-03-10 16:37 | NUR ---
MERREM INFUSION COMPLETE
[2021-03-10 16:42] VITALS: BP 148/98
--- NOTE | 2021-03-10 18:09 | NUR ---
PATIENT ARRIVED TO UNIT AT THIS TIME VIA BED. ALERT/ORIENTED, AMBULATED FROM ER BED TO BED IN ROOM 2125. PATIENT ADMITTED TO ROOM 2126 AT THIS TIME. CALL LIGHT WITHIN REACH. NO DISTRESS.
--- NOTE | 2021-03-10 18:21 | NUR ---
QUICKSTART COMPLETE, MED REQ AND PHARMACY UPDATED. NO DISTRESS.
[2021-03-10 20:03] VITALS: BP 127/81
[2021-03-10 20:31] VITALS: BP 127/81; Ht 160 cm; Wt 68.6 kg
[2021-03-10 23:30] VITALS: BP 116/63
[2021-03-11 04:24] VITALS: BP 142/93
[2021-03-11 06:58] LABS: BASOPHILS 0.2 % (0-2); EOSINOPHILS 0 % (0-7); HEMATOCRIT 36.4 % (36.0-48.0); HEMOGLOBIN 11.3 g/dL (12-16); LYMPHOCYTES 4.6 % (15-50); MCH 23.1 pg (26.0-34.0); MCHC 31.1 g/dL (31.0-37.0); MCV 74.2 fL (80.0-100.0); MEAN PLATELET VOLUME 8.8 fL (7.4-10.4); MONOCYTES 1.7 % (2-11); NEUTROPHILS 93.5 % (40-80); PLATELET COUNT 250 10x3/uL (130-400); RBC 4.91 10x6/uL (4.00-5.40); RDW 21.4 % (11.5-14.5)
[2021-03-11 07:21] LABS: WBC 11.4 10x3/uL (4.8-10.8)
[2021-03-11 07:30] VITALS: BP 125/74
[2021-03-11 07:42] LABS: ALBUMIN 3.1 g/dL (3.4-5.0); BILIRUBIN - TOTAL 0.33 mg/dL (0.2-1.3); CALCIUM 8.7 mg/dL (8.5-10.1); CARBON DIOXIDE 24.8 mmol/L (21.0-32.0); CREATININE - SERUM 0.9 mg/dL (0.6-1.3); MAGNESIUM - SERUM 2.2 mg/dL (1.8-2.4); PHOSPHOROUS 3.3 mg/dL (2.5-4.9); POTASSIUM - SERUM 4.8 mmol/L (3.5-5.1); PROTEIN - SERUM 6.7 g/dL (6.4-8.2)
[2021-03-11 11:30] VITALS: BP 134/84
--- NOTE | 2021-03-11 11:43 | NUR ---
IVPB VANCOMYCIN HUNG AT THIS TIME. PT DENIES ANY NEEDS AT THIS TIME, CALL LIGHT IN REACH, FAMILY AT BEDSIDE.
--- NOTE | 2021-03-11 14:00 | NUR ---
4MG OF MORPHINE GIVEN FOR PAIN LEVEL OF 8/10. SPUTUM CULTURE COLLECTED AND TAKEN TO LAB. PT DENIES ANY OTHER NEEDS AT THIS TIME. CALL LIGHT IN REACH.
[2021-03-11 16:00] VITALS: BP 121/79
[2021-03-11 20:16] VITALS: BP 137/92
--- NOTE | 2021-03-11 22:00 | NUR ---
REPORT RECEIVED. PT A&O, UP IN BED WITH FINANCE AT BEDSIDE. NO S/S OF DISTRESS OBSERVED. RR EVEN & UNLABORED ON RA. R FA IV INFUSING NS @ 50CC/HR. ORDER RECEIVED FOR NICOTINE PATCH. BED LOCKED AND LOWERED, CL IN REACH. ASSESSMENT COMPLETE. WILL CONT POC.
[2021-03-12 00:20] VITALS: BP 144/82
[2021-03-12 05:21] VITALS: BP 162/105
[2021-03-12 05:45] LABS: BASOPHILS 0.1 % (0-2); EOSINOPHILS 0 % (0-7); HEMATOCRIT 35.5 % (36.0-48.0); HEMOGLOBIN 10.8 g/dL (12-16); LYMPHOCYTES 3.9 % (15-50); MCH 22.5 pg (26.0-34.0); MCHC 30.5 g/dL (31.0-37.0); MCV 73.8 fL (80.0-100.0); MEAN PLATELET VOLUME 8.2 fL (7.4-10.4); MONOCYTES 3.5 % (2-11); NEUTROPHILS 92.5 % (40-80); PLATELET COUNT 272 10x3/uL (130-400); RBC 4.81 10x6/uL (4.00-5.40); RDW 21.6 % (11.5-14.5)
[2021-03-12 05:52] LABS: WBC 14.8 10x3/uL (4.8-10.8)
[2021-03-12 05:59] LABS: ALBUMIN 2.9 g/dL (3.4-5.0); ANION GAP 9.6 mmol/L (8-16); BILIRUBIN - TOTAL 0.15 mg/dL (0.2-1.3); CALCIUM 8.7 mg/dL (8.5-10.1); CARBON DIOXIDE 29.2 mmol/L (21.0-32.0); CREATININE - SERUM 0.9 mg/dL (0.6-1.3); MAGNESIUM - SERUM 2.1 mg/dL (1.8-2.4); POTASSIUM - SERUM 4.8 mmol/L (3.5-5.1); PROTEIN - SERUM 6.4 g/dL (6.4-8.2)
--- NOTE | 2021-03-12 05:59 | NUR ---
RECHECKED PTS BP, 152/101.
[2021-03-12 08:00] VITALS: BP 150/95
--- NOTE | 2021-03-12 08:00 | NUR ---
PT RECEIVED AWAKE AND ALERT IN BED. ASKING FOR PAIN AND NAUSEA MEDS. DOSED PER ORDER. IV TO RIGHT FOREARM INFUSING. STATES NO SLEEP LAST NIGHT.
[2021-03-12 11:45] VITALS: BP 144/94
[2021-03-12 16:00] VITALS: BP 150/89
[2021-03-12 20:00] VITALS: BP 144/102
--- NOTE | 2021-03-12 21:41 | NUR ---
REPORT RECEIVED. PT A&O, UP IN BED WATCHING TV WITH FIANCE AT BEDSIDE. NO S/S OF DISTRESS OBSERVED. RR EVEN & UNLABORED ON RA. IV TO R HAND INFUSING NS AT 50 CC/HR. BED LOCKED AND LOWERED, CL IN REACH. ASSESSMENT COMPLETE. WILL CONT POC.
[2021-03-13] VITALS: BP 141/87
[2021-03-13 04:00] VITALS: BP 145/97
[2021-03-13 07:22] LABS: BASOPHILS 0.2 % (0-2); EOSINOPHILS 0 % (0-7); HEMATOCRIT 35.3 % (36.0-48.0); HEMOGLOBIN 10.8 g/dL (12-16); LYMPHOCYTES 5.9 % (15-50); MCH 22.6 pg (26.0-34.0); MCHC 30.7 g/dL (31.0-37.0); MCV 73.5 fL (80.0-100.0); MEAN PLATELET VOLUME 8.4 fL (7.4-10.4); MONOCYTES 4.3 % (2-11); NEUTROPHILS 89.6 % (40-80); PLATELET COUNT 293 10x3/uL (130-400); RDW 21.9 % (11.5-14.5); WBC 13.5 10x3/uL (4.8-10.8)
[2021-03-13 07:50] LABS: ALBUMIN 2.6 g/dL (3.4-5.0); ALKALINE PHOSPHATASE 74 U/L (30-120); ALT (SGPT) 18 U/L (10-68); BILIRUBIN - TOTAL 0.24 mg/dL (0.2-1.3); CALC OSMOLALITY 277 mosm/kg (275-300); CALCIUM 8.5 mg/dL (8.5-10.1); CARBON DIOXIDE 32.8 mmol/L (21.0-32.0); CHLORIDE - SERUM 104 mmol/L (98-107); CREATININE - SERUM 0.7 mg/dL (0.6-1.3); GLUCOSE 108 mg/dL (74-106); MAGNESIUM - SERUM 2.2 mg/dL (1.8-2.4); PHOSPHOROUS 3.1 mg/dL (2.5-4.9); POTASSIUM - SERUM 4.4 mmol/L (3.5-5.1); SODIUM 138 mmol/L (136-145); UREA NITROGEN 16 mg/dL (7-18); eGFR NON AFRICAN AMERICAN > 90 mL/min (90-120)
[2021-03-13 08:00] VITALS: BP 136/91
[2021-03-13 09:12] LABS: ANA REFLEX - DIRECT Negative (Negative)
[2021-03-13 11:50] VITALS: BP 144/91
[2021-03-13 15:45] VITALS: BP 127/90
--- NOTE | 2021-03-13 16:56 | NUR ---
PATIENT BACK FROM DIALYSIS. DISCHARGE ORDERS IN.
--- NOTE | 2021-03-13 18:02 | NUR ---
PATIENT REFUSING NEW IV. STATES THE DRTiffany TOLD HER SHE WAS SWITCHING TO ORAL AND DID NOT NEED NEW IV. RAZ ZAMARRIPA APN.
[2021-03-13 20:00] VITALS: BP 156/78
[2021-03-14] VITALS: BP 136/93
[2021-03-14 04:00] VITALS: BP 155/101
--- NOTE | 2021-03-14 04:49 | NUR ---
REPORT RECEIVED. PT A&O, UP IN BED WITH FIANCE AT BEDSIDE. NO S/S OF DISTRESS OBSERVED. RR EVEN & UNLABORED ON RA. IV RESITED TO R FA 20G WITH IV ATB INFUSING. BED LOCKED AND LOWERED, CL IN REACH. ASSESSMENT COMPLETE. WILL CONT POC.
[2021-03-14 07:24] LABS: BASOPHILS 0 % (0-2); EOSINOPHILS 0.1 % (0-7); HEMATOCRIT 35.8 % (36.0-48.0); HEMOGLOBIN 11.2 g/dL (12-16); LYMPHOCYTES 9.3 % (15-50); MCH 22.9 pg (26.0-34.0); MCHC 31.4 g/dL (31.0-37.0); MEAN PLATELET VOLUME 8.2 fL (7.4-10.4); MONOCYTES 7.2 % (2-11); NEUTROPHILS 83.4 % (40-80); PLATELET COUNT 311 10x3/uL (130-400); RDW 21.2 % (11.5-14.5); WBC 11.5 10x3/uL (4.8-10.8)
[2021-03-14 07:29] LABS: ALBUMIN 2.4 g/dL (3.4-5.0); ALKALINE PHOSPHATASE 70 U/L (30-120); ALT (SGPT) 17 U/L (10-68); BILIRUBIN - TOTAL 0.26 mg/dL (0.2-1.3); CALC OSMOLALITY 276 mosm/kg (275-300); CALCIUM 8.2 mg/dL (8.5-10.1); CARBON DIOXIDE 32.7 mmol/L (21.0-32.0); CHLORIDE - SERUM 103 mmol/L (98-107); CREATININE - SERUM 0.8 mg/dL (0.6-1.3); GLUCOSE 86 mg/dL (74-106); MAGNESIUM - SERUM 2.2 mg/dL (1.8-2.4); PHOSPHOROUS 3.4 mg/dL (2.5-4.9); POTASSIUM - SERUM 4.5 mmol/L (3.5-5.1); PROTEIN - SERUM 5.5 g/dL (6.4-8.2); SODIUM 138 mmol/L (136-145); UREA NITROGEN 17 mg/dL (7-18); eGFR NON AFRICAN AMERICAN 83 mL/min (90-120)
[2021-03-14 10:12] LABS: ANGIOTENSIN CONVERTING ENZYME 125 U/L (14-82)
[2021-03-14 11:11] LABS: IMMUNOGLOBULIN E 36 IU/mL (6-495)
[2021-03-14] MEDS ORDERED: TESSALON PERLE100 MG PO (11:25)
[2021-03-14] MEDS ORDERED: MUCINEX DM ER1 EAC1 PO (11:25)
[2021-03-14] MEDS ORDERED: ADOXA100 MG PO (11:26)
[2021-03-14] MEDS ORDERED: PREDNISONE10 MG PO (11:27)
[2021-03-14 12:11] LABS: C1 ESTERASE INHIBITOR 29 mg/dL (21-39)
[2021-03-14 15:12] LABS: ANCA - ANTIMYELOPEROXIDASE <9.0 U/mL (0.0-9.0); ANCA - ANTIPROTEINASE 3 <3.5 U/mL (0.0-3.5); ANCA - ATYPICAL <1:20 titer (Neg:<1:20); ANCA - CYTOPLASMIC <1:20 titer (Neg:<1:20); ANCA - PERINUCLEAR <1:20 titer (Neg:<1:20)
[2021-03-15 03:08] LABS: CYCLIC CITRULL PEPTIDE IGG/IGA <1 units (0-19)
== END 2021-03-14 15:04 | disposition home or self-care (01) | DRG 177 ==
LOC: D.ER 09:03 → D.M2 14:39 → D.EDHOLD 14:39 → D.M2 16:36
PROVIDERS: Family Medicine; Internal Medicine Pulmonary Disease; ADMIT Emergency Medicine; ATTEND Emergency Medicine
DX: J15.6 Pneumonia due to other Gram-negative bacteria (principal); J96.01 Acute respiratory failure with hypoxia; E87.2 Acidosis; R59.0 Localized enlarged lymph nodes; I10 Essential (primary) hypertension; F17.200 Nicotine dependence, unspecified, uncomplicated